=== PATIENT | male | born 1985 | race Caucasian/White ===

== ENCOUNTER 2016-10-31 10:52 | Emergency (ER) | payer OTHER ==
[~2016-10-31 10:52] MED LIST: CLEOCIN PO; FLEXERIL PO; IBUPROFEN PO; MUCINEX DM1 TAB.SR . PO; VICODIN PO; VOLTAREN75 MG PO
== END 2016-10-31 10:54 | disposition home or self-care (01) ==
LOC: CFTX 10:52
DX: J02.9 Acute pharyngitis, unspecified (principal); I10 Essential (primary) hypertension; F17.210 Nicotine dependence, cigarettes, uncomplicated
CPT/HCPCS: 99282

== ENCOUNTER 2017-03-08 23:27 | Emergency (ER) | payer OTHER ==
--- NOTE | ~2017-03-08 | CR72 ---
[facility] A Service of [facility] & [facility] / [facility] RADIOLOGY TEXT RESULTS PATIENT: ANIA ESCOBAR LOCATION: [facility] : [birth year] UNIT #: [id number] AGE: [address]: Shan Barillas MD SEX: M ORDER DR: [id number] [facility] [address] [place], [place] [address] [id number] E MR#: [id number] Acc #: [id number] NAME: ANIA ESCOBAR : 1985 SEX: M STUDY DATE/TIME: 03/08/2017 23:55 UNIT: [facility] ROOM: STUDY DESCRIPTION: CR Chest Single View Portable Attending Physician: Shan Barillas M.D. Ordering Physician: Ed Doctor [id number] [facility] Primary Care Physician: [facility] MEDICAL IMAGING REPORT This report is preliminary unless electronic signature is present EXAM Portable chest INDICATIONS Left-sided chest pain today. PROCEDURE Frontal view chest. COMPARISON 02/21/2016 FINDINGS Heart size is normal. Lungs are clear. No pleural fluid. No pneumothorax. IMPRESSION No active process Dictated by... Dao Yoder M.D. THIS IS AN ELECTRONICALLY VERIFIED REPORT Dao Yoder M.D. at 03/09/2017 9:55 PM EEMaira/joseline TD: 03/09/2017 05:45 JOB #: [id number] MEDICAL IMAGING REPORT Page 1 of 1 COPY
--- NOTE | ~2017-03-08 | EKG ---
PATIENT: ANIA ESCOBAR UNIT #: [id number] Ventricular Rate: 67 BPM Atrial Rate: 67 BPM P-R Interval: 146 ms QRS Duration: 94 ms Q-T Interval: 382 ms QTC Calculation(Bezet): 403 ms P [place]: 43 degrees Calculated R [place]: 41 degrees Calculated T [place]: 28 degrees Diagnosis Line: Normal sinus rhythm Diagnosis Line: Normal ECG Diagnosis Line: No previous ECGs available Diagnosis Line: Confirmed by WENDY REDDY MD ([id number]) on Diagnosis Line: 03/09/2017 2:01:52 PM INTERPRETING MD: MAUREEN SAMUEL
[2017-03-09 00:23] LABS: BASOPHIL# 0.1 X10e3 (0-0.3); BASOPHIL% 1.3 % (0-2.5); EOSINOPHIL# 0.8 X10e3 (0-0.7); EOSINOPHIL% 8.4 % (0.0-7.0); HEMATOCRIT 44.3 % (38.0-50.0); HEMOGLOBIN 15.4 gm/dL (13.0-16.0); LYMPHOCYTE# 2.7 X10e3 (1.0-3.5); LYMPHOCYTE% 28.6 % (17.0-45.0); MEAN CELL VOLUME 87.3 FL (83-96); MEAN CORPUSCULAR HEMOGLOBIN 30.4 PG (28-34); MEAN CORPUSCULAR HGB CONC 34.8 g/dL (30-36); MEAN PLATELET VOLUME 8.7 FL (6.5-11.5); MONOCYTE# 0.6 X10e3 (0-1.0); MONOCYTE% 6.5 % (3.0-12.0); NEUTROPHIL# 5.3 X10e3 (1.5-7.1); NEUTROPHIL% 55.2 % (40-75); PLATELET COUNT 204 X10e3 (140-420); RED BLOOD COUNT 5.07 X10e (3.90-5.60); RED CELL DISTRIBUTION WIDTH 13.4 % (11.0-15.5); WHITE BLOOD COUNT 9.6 X10e3 (4.0-10.5)
[2017-03-09 00:25] LABS: DIFF IND YES
[2017-03-09 00:30] LABS: PARTIAL THROMBOPLASTIN TIME 26.1 SECONDS (23.5-31.3); PROTHROMBIN TIME (PATIENT) 10.7 SECONDS (10.0-11.7)
[2017-03-09 00:45] LABS: ALBUMIN SERUM 4.5 g/dL (3.5-5.0); BILIRUBIN, DIRECT 0.1 mg/dL (0.0-0.2); BILIRUBIN,INDIRECT 0.6 mg/dL (0.0-0.9); BILIRUBIN,TOTAL 0.7 mg/dL (0.2-2.0); BUN/CREATININE RATIO 17.77; CALCIUM SERUM 9.7 mg/dL (8.4-10.2); CREATININE SERUM 0.9 mg/dL (0.6-1.4); GLOM FILT RATE Estimated 113.4 mL/min (>60); POTASSIUM 4.1 mmol/L (3.5-5.1); PROTEIN TOTAL SERUM 7.4 g/dL (6.0-8.3)
[2017-03-09 00:54] LABS: PLATELET ESTIMATE NORMAL (NORMAL)
[2017-03-09 00:55] LABS: ANISOCYTOSIS SL
[2017-03-09 00:56] LABS: SPHEROCYTE SL
== END 2017-03-09 01:25 | disposition home or self-care (01) ==
LOC: CED 23:27
DX: R07.89 Other chest pain (principal); M54.12 Radiculopathy, cervical region; I10 Essential (primary) hypertension; F17.200 Nicotine dependence, unspecified, uncomplicated
CPT/HCPCS: 36415; 71010; 80048; 80076; 85025; 85610; 85730; 93005; 99285

== ENCOUNTER 2017-04-09 06:55 | Emergency (ER) | payer OTHER ==
[~2017-04-09] VITALS: Ht 180.3 cm; Wt 93.0 kg
--- NOTE | ~2017-04-09 | CR63 ---
[facility] A Service of [facility] RADIOLOGY TEXT RESULTS PATIENT: ANIA ESCOBAR LOCATION: [facility] : [birth year] UNIT #: [id number] AGE: [address]: Tiffanie Love APRN SEX: M ORDER DR: [id number] [facility] [address] [place], [place] [address] [id number] E MR#: [id number] Acc #: [id number] NAME: ANIA ESCOBAR : 1985 SEX: M STUDY DATE/TIME: 04/09/2017 7:41 UNIT: [facility] ROOM: STUDY DESCRIPTION: CR Chest 2 View Attending Physician: Tiffanie Love A.P.R.N. Ordering Physician: Bhupendra Lozada M.D. [facility] REPORT This report is preliminary unless electronic signature is present EXAM Chest x-ray. HISTORY Cough and wheezing for the past 2 days. TECHNIQUE 2 views of the chest were obtained. COMPARISON Compared with 03/08/2017. FINDINGS PA and lateral examination of the chest upright shows a good expansion of the parenchyma with a normal distribution of the pulmonary vascularity. There is no indication of congestion, effusion, infiltrate, tumor, or nodular density. The pleural reflections and diaphragmatic contours are normal. The cardiac silhouette and mediastinal anatomy is within normal limits. IMPRESSION Normal chest. Dictated by... Tin Mcrae M.D. THIS IS AN ELECTRONICALLY VERIFIED REPORT Tin Mcrae M.D. at 04/09/2017 4:35 PM REGAN/domonique TD: 04/09/2017 12:23 JOB #: [id number] [facility] A Service [facility] RADIOLOGY TEXT RESULTS PATIENT: ANIA ESCOBAR LOCATION: [facility] : [birth year] UNIT #: [id number] AGE: [address]: Tiffanie Love APRN SEX: M ORDER DR: MEDICAL IMAGING REPORT Page 1 of 1 COPY
== END 2017-04-09 09:08 | disposition home or self-care (01) ==
LOC: CED 06:55
DX: J20.9 Acute bronchitis, unspecified (principal); J02.9 Acute pharyngitis, unspecified; I10 Essential (primary) hypertension; F17.210 Nicotine dependence, cigarettes, uncomplicated; M54.2 Cervicalgia; M54.9 Dorsalgia, unspecified; G89.29 Other chronic pain
CPT/HCPCS: 71020; 87651; 94640; 99284